=== PATIENT | male | born 2000 | race Caucasian/White ===

== ENCOUNTER 2025-09-27 18:43 | Emergency (ER) | payer OTHER ==
[~2025-09-27] VITALS: Ht 162.6 cm; Wt 79.4 kg
[2025-09-27] MEDS ORDERED: KETOROLAC TROMETHAMINE 30 MG VIAL IM ONE (20:30)
[2025-09-27] MEDS ORDERED: DEXAMETHASONE SODIUM PHOSPHATE 4 MG/ML VIAL IM ONE (20:30)
[2025-09-27] MEDS ORDERED: CEFTRIAXONE SODIUM 1,000 MG VIAL IM ONE (20:30)
[2025-09-27] MEDS ORDERED: AMOX-CLAV 875-1 EACH PO (20:33)
== END 2025-09-27 20:54 | disposition home or self-care (01) ==
LOC: ER 18:44
DX: H61.21 Impacted cerumen, right ear (principal)
CPT/HCPCS: 96372; 99282; J0696; J1100; J1885